=== PATIENT | female | born 1980 | race Asian ===

== ENCOUNTER → 2018-04-18 | Outpatient (CLI) | payer OTHER ==
[~2018-04-18] MED LIST: ASCO-96 PO; ATOR20TA PO; CHOL500015 PO; FISH OIL PO; GINK60TA4 PO; LISI-167 PO; LORA10TA75 PO; MULT-516 PO; PROP10TA PO
[2018-04-18 09:35] LABS: ALANINE AMINOTRANSFERASE 33 U/L (12-78); ALBUMIN 3.9 g/dL (3.4-5.0); ANION GAP 8 mmol/L (5-15); CALCIUM 8.3 mg/dL (8.5-10.1); CHLORIDE 103 mmol/L (98-107); CREATININE 0.72 mg/dL (0.55-1.02)
[2018-04-18 09:37] LABS: ALKALINE PHOSPHATASE 40 U/L (45-117); BILIRUBIN,TOTAL 0.4 mg/dL (0.2-1.0); TOTAL PROTEIN 8.3 g/dL (6.4-8.2)
== END | disposition home or self-care (01) ==
LOC: SDC 08:41
PROVIDERS: ATTEND Specialist
DX: Z01.818 Encounter for other preprocedural examination (principal); N87.1 Moderate cervical dysplasia
CPT/HCPCS: 36415; 80053

== ENCOUNTER 2018-04-24 07:05 | Day surgery (SDC) | payer OTHER ==
[~2018-04-24] VITALS: Ht 157.5 cm; Wt 78.1 kg
[2018-04-24] MEDS ORDERED: LACTATED RINGERS 1,000 ML IV SCH (07:24)
[2018-04-24] MEDS ORDERED: LIDOCAINE-MPF 1%, 2ML INFIL ONE (07:30)
[2018-04-24] MEDS ORDERED: GABAPENTIN 300 MG CAPSULE PO ONE (07:30)
[2018-04-24] MEDS ORDERED: ONDANSETRON ODT 8 MG PO ONE (07:30)
[2018-04-24] MEDS ORDERED: ACETAMINOPHEN 500 MG TABLET PO ONE (07:30)
[2018-04-24] MEDS ORDERED: FAMOTIDINE 20 MG TABLET PO ONE (07:30)
[2018-04-24] MEDS ORDERED: OxyconTIN ER 10 MG TAB.ER PO ONE (07:30)
[2018-04-24 07:45] VITALS: BP 111/76
[2018-04-24 08:17] LABS: HCG UR SG 1.017 (1.003-1.030)
[2018-04-24] MEDS ORDERED: EPINEPHRINE 1 MG/ML, 1ML ONE (08:38)
[2018-04-24] MEDS ORDERED: BUPIVACAINE/PF 0.25% ONE (08:38)
[2018-04-24] MEDS ORDERED: FENTANYL PF 100 MCG/2ML ONE (08:47)
[2018-04-24] MEDS ORDERED: MIDAZOLAM 1 MG/ML, 2ML ONE (08:47)
[2018-04-24] MEDS ORDERED: SUCCINYLCHOLINE 20 MG/ML, 10ML ONE (08:55)
[2018-04-24] MEDS ORDERED: PROPOFOL 10 MG/ML, 20ML ONE ×2 (08:55→08:56)
[2018-04-24] MEDS ORDERED: CEFAZOLIN 1,000 MG ONE (08:56)
[2018-04-24] MEDS ORDERED: DEXAMETHASONE 4 MG/ML, 1ML ONE (08:56)
[2018-04-24] MEDS ORDERED: ONDANSETRON 2MG/ML, 2ML ONE (08:56)
[2018-04-24] MEDS ORDERED: VASOPRESSIN 20 UNIT/ML, 1ML ONE (08:58)
[2018-04-24] MEDS ORDERED: OXYcodone 5 MG/5 ML ORAL.SOL UDC PO PRN (09:00)
[2018-04-24] MEDS ORDERED: LABETALOL 5MG/ML, 20ML IV PRN (09:00)
[2018-04-24] MEDS ORDERED: MORPHINE SULFATE 4 MG/ML, 1ML IVPush PRN (09:00)
[2018-04-24] MEDS ORDERED: PROMETHAZINE 25 MG/ML, 1ML IV PRN (09:00)
[2018-04-24] MEDS ORDERED: FENTANYL PF 100 MCG/2ML IV PRN (09:00)
[2018-04-24] MEDS ORDERED: ONDANSETRON ODT 8 MG PO PRN (09:00)
[2018-04-24] MEDS ORDERED: MEPERIDINE/PF 25MG/0.5ML IVPush PRN (09:00)
[2018-04-24] MEDS ORDERED: hydrALAzine 20 MG/ML, 1ML IV PRN (09:00)
== END 2018-04-24 11:59 ==
LOC: OUT 07:05
PROVIDERS: ATTEND Specialist
DX: D06.9 Carcinoma in situ of cervix, unspecified (principal); I10 Essential (primary) hypertension
CPT/HCPCS: 81025; 88305; J0171; J0690; J1100; J2250; J2405; J2704; J3010; J3490; Q0162; J0330; J7120

== ENCOUNTER 2019-06-02 13:11 | Outpatient (CLI) | payer OTHER ==
[~2019-06-02] VITALS: Ht 157.5 cm; Wt 86.8 kg
== END 2019-06-02 15:15 | disposition home or self-care (01) ==
LOC: LDOP 13:11
PROVIDERS: ATTEND Obstetrics & Gynecology
DX: O16.3 Unspecified maternal hypertension, third trimester (principal); Z3A.36 36 weeks gestation of pregnancy
CPT/HCPCS: 36415; 59025; 80053; 82570; 84156; 84550; 85025; 99201; 99211; G0463

== ENCOUNTER 2019-06-26 10:52 | Outpatient (CLI) | payer OTHER ==
[~2019-06-26] VITALS: Ht 157.5 cm; Wt 91.8 kg
[~2019-06-26 10:52] MED LIST changes: -PROP10TA PO; +PROP10TA16 PO
[2019-06-26 11:06] VITALS: BP 141/87
[2019-06-26] MEDS ORDERED: ASPI-496 PO (11:06)
[2019-06-26] MEDS ORDERED: LABE100T6 PO (11:06)
[2019-06-26] MEDS ORDERED: PREN1TAB60 PO (11:06)
[2019-06-26 11:27] LABS: BASOPHILS # (AUTO) 0.06 x10^3/uL (0-0.1); BASOPHILS % (AUTO) 0 % (0-1); EOSINOPHILS # (AUTO) 0.37 x10^3/uL (0-0.4); EOSINOPHILS % (AUTO) 3 % (1-7); LYMPHOCYTES # (AUTO) 2.37 x10^3/uL (1-3.4); LYMPHOCYTES % (AUTO) 16 % (22-44); MD NO; MEAN CORPUSCULAR HEMOGLOBIN 31.3 pg (27.0-34.8); MEAN CORPUSCULAR HGB CONC 33.7 g/dL (32.4-35.8); MEAN CORPUSCULAR VOLUME 92.7 fL (80-100); MEAN PLATELET VOLUME 9.4 fL (7.4-10.4); MONOCYTES # (AUTO) 1.13 x10^3/uL (0.2-0.8); MONOCYTES % (AUTO) 8 % (2-9); NEUTROPHILS # (AUTO) 10.65 x10^3/uL (1.8-6.8); NEUTROPHILS % (AUTO) 73 % (42-75); PLATELET COUNT 215 x10^3/uL (130-400); RED BLOOD COUNT 4.11 x10^6/uL (3.82-5.3); RED CELL DISTRIBUTION WIDTH 14.1 % (9.6-15.2)
[2019-06-26 11:37] LABS: ALANINE AMINOTRANSFERASE 20 U/L (12-78); ALBUMIN 2.6 g/dL (3.4-5.0); ANION GAP 10 mmol/L (5-15); CALCIUM 8.7 mg/dL (8.5-10.1); CHLORIDE 108 mmol/L (98-107)
[2019-06-26 11:39] LABS: ALKALINE PHOSPHATASE 136 U/L (45-117); BILIRUBIN,TOTAL 0.2 mg/dL (0.2-1.0); CREATININE 0.48 mg/dL (0.55-1.02); TOTAL PROTEIN 6.7 g/dL (6.4-8.2)
[2019-06-26 11:47] LABS: MICROSCOPIC INDICATED
[2019-07-03] MEDS ORDERED: OXYC-302 PO (10:29)
[2019-07-03] MEDS ORDERED: IBUP-1222 PO (10:29)
== END 2019-06-26 13:10 | disposition home or self-care (01) ==
LOC: LDOP 10:52
PROVIDERS: ATTEND Obstetrics & Gynecology
DX: O16.3 Unspecified maternal hypertension, third trimester (principal); O09.513 Supervision of elderly primigravida, third trimester; Z3A.36 36 weeks gestation of pregnancy
CPT/HCPCS: 36415; 59025; 80053; 81001; 82570; 84156; 84550; 85025; 99211; G0463

== ENCOUNTER 2019-06-29 07:42 | Inpatient (IN) | payer OTHER ==
[~2019-06-29] VITALS: Ht 157.5 cm; Wt 91.8 kg
[2019-07-03 07:50] VITALS: BP 148/91
== END 2019-07-03 12:45 | disposition home or self-care (01) | DRG 806 ==
LOC: LDIP 19:43 → 2NW 07-02 10:17
PROVIDERS: ADMIT Obstetrics & Gynecology; ATTEND Obstetrics & Gynecology
PROC: 10E0XZZ Delivery of Products of Conception, External Approach (ICD-10-PCS; principal; 2019-07-01)
PROC: 0KQM0ZZ Repair Perineum Muscle, Open Approach (ICD-10-PCS; 2019-07-01)
PROC: 10907ZC Drainage of Amniotic Fluid, Therapeutic from Products of Conception, Via Natural or Artificial Opening (ICD-10-PCS; 2019-07-01)
PROC: 10H07YZ Insertion of Other Device into Products of Conception, Via Natural or Artificial Opening (ICD-10-PCS; 2019-07-01)
DX: O76 Abnormality in fetal heart rate and rhythm complicating labor and delivery (principal); O10.92 Unspecified pre-existing hypertension complicating childbirth; Z37.0 Single live birth; O99.824 Streptococcus B carrier state complicating childbirth; Z3A.37 37 weeks gestation of pregnancy; O70.1 Second degree perineal laceration during delivery; O69.81X0 Labor and delivery complicated by cord around neck, without compression, not applicable or unspecified; O14.14 Severe pre-eclampsia complicating childbirth
CPT/HCPCS: 36415; S0020; 80053; 81001; 82248; 82803; 83735; 84550; 85025; 86850; 86900; 90715; G0378; J2540; J3010; J2590; J3475; J7050; J7120

== ENCOUNTER 2020-02-22 02:00 | Emergency (ER) | payer OTHER ==
[~2020-02-22] VITALS: Ht 157.5 cm; Wt 81.0 kg
[~2020-02-22 02:00] MED LIST changes: +ASPI-496 PO; +IBUP-1222 PO; +LABE100T6 PO; +OXYC-302 PO; +PREN1TAB60 PO
[2020-02-22] MEDS ORDERED: MAALOX/HYOSCYAMINE/LIDOCAINE 45 ML BTL PO ONE (02:30)
[2020-02-22] MEDS ORDERED: MAALOX/HYOSCYAMINE/LIDOCAINE 45 ML BTL ONE (02:36)
[2020-02-22 02:45] LABS: BASOPHILS # (AUTO) 0.09 x10^3/uL (0-0.1); BASOPHILS % (AUTO) 1 % (0-1); EOSINOPHILS # (AUTO) 0.25 x10^3/uL (0-0.4); EOSINOPHILS % (AUTO) 2 % (1-7); LYMPHOCYTES # (AUTO) 3.41 x10^3/uL (1-3.4); LYMPHOCYTES % (AUTO) 23 % (22-44); MD NO; MEAN CORPUSCULAR HEMOGLOBIN 30.3 pg (27.0-34.8); MEAN CORPUSCULAR HGB CONC 33.4 g/dL (32.4-35.8); MEAN CORPUSCULAR VOLUME 90.8 fL (80-100); MEAN PLATELET VOLUME 9.8 fL (7.4-10.4); MONOCYTES # (AUTO) 0.65 x10^3/uL (0.2-0.8); MONOCYTES % (AUTO) 4 % (2-9); NEUTROPHILS # (AUTO) 10.21 x10^3/uL (1.8-6.8); NEUTROPHILS % (AUTO) 70 % (42-75); PLATELET COUNT 252 x10^3/uL (130-400); RED BLOOD COUNT 4.57 x10^6/uL (3.82-5.3); RED CELL DISTRIBUTION WIDTH 13.1 % (9.6-15.2)
[2020-02-22] MEDS ORDERED: ATOR20TA37 PO (02:46)
[2020-02-22] MEDS ORDERED: PROP10TA16 PO (02:46)
[2020-02-22] MEDS ORDERED: OMEG1CAP23 PO (02:46)
[2020-02-22] MEDS ORDERED: LISI-170 PO (02:46)
[2020-02-22 02:55] LABS: ALANINE AMINOTRANSFERASE 21 U/L (12-78); ALBUMIN 3.9 g/dL (3.4-5.0); ANION GAP 7 mmol/L (5-15); CALCIUM 9.9 mg/dL (8.5-10.1); CHLORIDE 108 mmol/L (98-107); CREATININE 0.67 mg/dL (0.55-1.02)
[2020-02-22 02:59] LABS: ALKALINE PHOSPHATASE 54 U/L (45-117); BILIRUBIN,TOTAL 0.4 mg/dL (0.2-1.0); TOTAL PROTEIN 8.4 g/dL (6.4-8.2); TROPONIN I < 0.015 ng/mL (0.000-0.045)
[2020-02-22 03:28] VITALS: BP 107/71
== END 2020-02-22 03:58 | disposition home or self-care (01) ==
LOC: ED 02:33
DX: K21.9 Gastro-esophageal reflux disease without esophagitis (principal); R07.89 Other chest pain
CPT/HCPCS: 36415; 71045; 80053; 84484; 85025; 93005; 99285

== ENCOUNTER → 2020-03-30 | Outpatient (CLI) | payer OTHER ==
[~2020-03-30] MED LIST changes: +ATOR20TA37 PO; +LISI-170 PO; +OMEG1CAP23 PO
== END | disposition home or self-care (01) ==
LOC: CFH 12:21
PROVIDERS: ATTEND Internal Medicine Cardiovascular Disease
DX: I37.1 Nonrheumatic pulmonary valve insufficiency (principal); I10 Essential (primary) hypertension; E78.5 Hyperlipidemia, unspecified
CPT/HCPCS: 93306